=== PATIENT | female | born 1960 | race Caucasian/White ===

== ENCOUNTER 2019-08-05 00:19 | Day surgery (SDC) | payer BC, SELFPAY ==
[2019-07-29 12:25] VITALS: BMI 28.0
[2019-08-05] MEDS: LACTATED RINGERS 1,000 ML 150 ML IV CONT (06:54)
[2019-08-05 06:55] VITALS: BP 143/80; PULSE 87; RESP 18; TEMP 36.4; O2SAT 100; BMI 29.4
--- NOTE | 2019-08-05 07:17 | WPDANESEPPF ---
Anes - Initial Pre Proc Eval Procedure: Operation Date: 08/05/19 07:30 Proposed Procedures p Screening Colonoscopy - Rajiv Thakkar DO Date/Time: 08/05/19 07:17 Surgeon: Rajiv Thakkar DO Pre Op Diagnosis: Hx Colon Polyps/ Fam Hx Colon Ca Patient Data Age: 58 Gender: F Height: 5 ft Weight: 68.4 kg Last Vital Signs Temp 97.5 F L 08/05/19 06:55 Pulse 87 08/05/19 06:55 Resp 18 08/05/19 06:55 BP 143/80 H 08/05/19 06:55 Pulse Ox 100 08/05/19 06:55 Allergies Allergy/AdvReac Type Severity Reaction Status Date / Time pseudoephedrine AdvReac Unknown Tachycardia Verified 08/05/19 06:38 Home Medications Medication Instructions Recorded Confirmed Type ascorbic acid (vitamin C) [Vitamin 500 mg PO DAILY 07/29/19 07/29/19 History C] calcium carbonate 500 mg (1,250 1 tablet PO DAILY 07/29/19 07/29/19 History mg)-vitamin D3 125 unit tablet cholecalciferol (vitamin D3) 50 2,000 unit PO DAILY 07/29/19 07/29/19 History mcg (2,000 unit) capsule fexofenadine 180 mg tablet 180 mg PO DAILY 07/29/19 07/29/19 History hydrochlorothiazide 50 mg PO QAM 07/29/19 07/29/19 History multivitamin 1 tablet PO DAILY 07/29/19 07/29/19 History rosuvastatin 5 mg PO HS 07/29/19 07/29/19 History valacyclovir 500 mg PO DAILY PRN 07/29/19 07/29/19 History penciclovir 1 % topical cream 1 applic TOPICAL Q2H PRN #5 gm 07/30/19 08/05/19 Rx Patient hx anesthesia problems: none Family hx anesthesia problems: none PMFSH Past Medical History Medical History (Updated 08/05/19 @ 07:17 by Feng Lugo MD) Essential (primary) hypertension Mixed hyperlipidemia Family History Family History (Updated 07/30/19 @ 08:39 by Rafael Timmons MD) Mother Multiple myeloma Father Carcinoma of colon Social History Social History Smoking status: Never smoker Second hand tobacco smoke exposure: No Alcohol intake: never Substance use: never Substance use type: does not use Gender identity (if verbalized by the patient): Female Anes - Eval Final PreProcedure Day of Procedure 08/05/19 07:17 Patient weight: normal Heart: regular rate and rhythm Lungs: clear to auscultation Airway: Mallampati scale class II Neurological: alert and oriented Last oral intake: >/= 8 hours ASA classification: II Emergent: no Anesthetic plan: proceed Anesthesia type and monitoring: general GIVS and standard monitoring Informed Consent: The patient's anesthetic plan and its attendant risks and benefits were discussed with the patient/family/POA. Questions were solicited and answers provided to the satisfaction of the patient/family/POA.
--- NOTE | 2019-08-05 07:25 | PM.IMHP ---
H&P: HPI History of Present Illness Chief complaint: Hx Colon Polyps/ Fam Hx Colon Ca Narrative: Thi Chambers is a 58 year old female [facility]. She reports last colonoscopy was in 2011 and does report hx of polyps. She also has hx of colon cancer in her father diagnosed in his late 30s.She denies any acute bowel habit changes, diarrhea, constipation, melena, hematochezia, abdominal pains or rectal pains. Denies upper GI symptoms. Denies abnormal weight loss, fever or chills. Review of Systems Review of Systems: All systems reviewed & are unremarkable except as noted in HPI and below PMFSH Past Medical History Medical History (Updated 08/05/19 @ 07:26 by Marlee Holloway, [employer]) Essential (primary) hypertension Mixed hyperlipidemia Family History Family History (Updated 07/30/19 @ 08:39 by Rafael Timmons MD) Mother Multiple myeloma Father Carcinoma of colon Social History Social History Smoking status: Never smoker Second hand tobacco smoke exposure: No Alcohol intake: never Substance use: never Substance use type: does not use Gender identity (if verbalized by the patient): Female Meds Home Medications and Allergies Home Medications Medication Instructions Recorded Confirmed Type ascorbic acid (vitamin C) [Vitamin 500 mg PO DAILY 07/29/19 07/29/19 History C] calcium carbonate 500 mg (1,250 1 tablet PO DAILY 07/29/19 07/29/19 History mg)-vitamin D3 125 unit tablet cholecalciferol (vitamin D3) 50 2,000 unit PO DAILY 07/29/19 07/29/19 History mcg (2,000 unit) capsule fexofenadine 180 mg tablet 180 mg PO DAILY 07/29/19 07/29/19 History hydrochlorothiazide 50 mg PO QAM 07/29/19 07/29/19 History multivitamin 1 tablet PO DAILY 07/29/19 07/29/19 History rosuvastatin 5 mg PO HS 07/29/19 07/29/19 History valacyclovir 500 mg PO DAILY PRN 07/29/19 07/29/19 History penciclovir 1 % topical cream 1 applic TOPICAL Q2H PRN #5 gm 07/30/19 08/05/19 Rx Allergies Allergy/AdvReac Type Severity Reaction Status Date / Time pseudoephedrine AdvReac Unknown Tachycardia Verified 08/05/19 06:38 Vital Signs Vital Signs - 24 hr 08/05/19 06:55 Temperature 36.4 C L Pulse Rate 87 Respiratory Rate 18 Blood Pressure 143/80 H Pulse Oximetry 100 Exam Const: General: cooperative, healthy appearing, comfortable, alert and awake Nutritional Appearance: average body habitus Orientation/consciousness: oriented to person, oriented to place, oriented to time and patient oriented x3 Limitations: no limitations HENMT: Head: normal to inspection and normocephalic Mouth: Yes Normal oral and palatal mucosa present and Yes moist mucous membranes Neck: Neck: normal visual inspection, supple and no JVD Carotids: no bruits Resp: Effort & Inspection: normal respiratory effort and no respiratory distress Auscultation: clear to auscultation bilaterally Cardio: Rate: regular rate Rhythm: regular rhythm Heart sounds: S1 normal heart sound present, S2 normal heart sound present, no gallops, no murmurs and no rubs GI: Inspection: normal to inspection GI Palp: No abdominal tenderness and No No hepatosplenomegaly present Percussion: Yes normal to percussion Auscultation: normal bowel sounds Rectal Exam: deferred Skin: General skin exam: normal color Lesions: no lesions Rashes: no rashes Neuro: General: oriented to person, oriented to place, oriented to time, patient oriented x3 and moves all extremities Cognition (Neuro): normal cognition Speech: normal speech Gait exam (Neuro): Normal gait present Extrem: General: normal to inspection Psych: Appearance: grossly normal Mental Status: mental status grossly normal Speech and movement: Normal speech and movement present Affect: normal affect Attitude: cooperative Thought process: Normal thought process present Assessment and Plan Assessment and plan (1) Hx of adenomatous c
[2019-08-05 07:47] VITALS: BP 82/51; PULSE 68; RESP 15; O2SAT 95
[2019-08-05 07:57] VITALS: BP 87/53; PULSE 66; RESP 16; O2SAT 96
[2019-08-05 08:07] VITALS: BP 95/62; PULSE 67; RESP 18; O2SAT 100
== END 2019-08-05 08:23 | disposition home or self-care (01) ==
PROVIDERS: PCP Family Medicine; Visit Provider Internal Medicine Gastroenterology
PROC: 0DJD8ZZ Inspection of Lower Intestinal Tract, Via Natural or Artificial Opening Endoscopic (ICD-10-PCS; CPT 45378; principal; 2019-08-05 07:30)
DX: Z12.11 Encounter for screening for malignant neoplasm of colon (principal); K62.1 Rectal polyp; K64.8 Other hemorrhoids; Z80.0 Family history of malignant neoplasm of digestive organs; I10 Essential (primary) hypertension; E78.2 Mixed hyperlipidemia
CPT/HCPCS: 45380; 88305; J2704; J7120

== ENCOUNTER 2019-12-30 09:43 | Outpatient (CLI) | payer BC, SELFPAY ==
--- NOTE | ~2019-12-30 | MM_ITS ---
EXAMINATION: MM screening chaim BI w abhilash HISTORY: Screening mammogram TECHNIQUE: Craniocaudal and mediolateral oblique 3-D tomosynthesis images were obtained and synthetic 2-D images were generated. CAD analysis was submitted and interpreted. COMPARISON: 11/13/2018, 11/07/2017, 09/20/2016 bilateral digital screening mammogram examinations BREAST PARENCHYMAL COMPOSITION: There are scattered areas of fibroglandular density. FINDINGS: Stable occasional benign appearing calcifications. There is no evidence of suspicious mass, calcification, or architectural distortion to suggest malignancy in either breast. There has been no suspicious interval change. IMPRESSION: 1. No mammographic evidence of malignancy. 2. Recommend routine screening mammography in one year. BI-RADS Category 2: Benign finding(s). Reviewed, dictated and finalized at location A.
== END 2019-12-30 09:44 | disposition home or self-care (01) ==
PROVIDERS: PCP Family Medicine; Visit Provider Obstetrics & Gynecology
DX: Z12.31 Encounter for screening mammogram for malignant neoplasm of breast (principal)
CPT/HCPCS: 77063; 77067

== ENCOUNTER 2022-06-15 10:34 | Outpatient (CLI) | payer OTHER, SELFPAY ==
--- NOTE | ~2022-06-15 | MM_ITS ---
EXAMINATION: MM screening chaim BI w abhilash HISTORY: Screening TECHNIQUE: Craniocaudal and mediolateral oblique 3-D tomosynthesis images were obtained and synthetic 2-D images were generated. CAD analysis was submitted and interpreted. COMPARISON: Comparison to multiple prior studies sequentially, with oldest reviewed study dated 08/16. BREAST PARENCHYMAL COMPOSITION: There are scattered areas of fibroglandular density. FINDINGS: There is no evidence of suspicious mass, calcification, or architectural distortion to sugg est malignancy in either breast. There has been no suspicious interval change. IMPRESSION: 1. No mammographic evidence of malignancy. 2. Recommend routine screening mammography in one year. BI-RADS Category 1: Negative Reviewed, dictated and finalized at location B. [employer]
== END 2022-06-15 10:35 | disposition home or self-care (01) ==
LOC: ANHIMG 10:36
PROVIDERS: PCP Family Medicine; Visit Provider Obstetrics & Gynecology
DX: Z12.31 Encounter for screening mammogram for malignant neoplasm of breast (principal)
CPT/HCPCS: 77063; 77067

== ENCOUNTER 2022-08-25 16:59 | Emergency (ER) | payer OTHER, SELFPAY ==
--- NOTE | 2022-08-25 17:05 | ED.URI ---
HPI - URI/Sore Throat General Chief Complaint: Upper Respiratory Infection Stated Complaint: Sore Throat Time Seen by Provider: 08/25/22 17:05 Source: patient, RN notes reviewed and old records reviewed Mode of arrival: ambulatory Limitations: no limitations History of Present Illness HPI Narrative: 61-year-old female presents to the [facility] with complaints of a sore throat since this morning. Has taken ibuprofen and Tylenol. Last dose of Tylenol was about 2 hours prior to arrival Related Data Home Medications Medication Instructions Recorded Confirmed ascorbic acid (vitamin C) 500 mg 500 mg PO DAILY 07/29/19 08/25/22 tablet (Vitamin C) calcium carbonate 500 mg-vitamin 1 tablet PO DAILY 07/29/19 08/25/22 D3 3.125 mcg (125 unit) tablet cholecalciferol (vitamin D3) 50 2,000 unit PO DAILY 07/29/19 08/25/22 mcg (2,000 unit) capsule fexofenadine 180 mg tablet 180 mg PO DAILY 07/29/19 08/25/22 (Yanelis Allergy) multivitamin 1 tablet PO DAILY 07/29/19 08/25/22 valacyclovir 500 mg tablet 500 mg PO DAILY PRN Outbreak 07/29/19 08/25/22 Allergies Allergy/AdvReac Type Severity Reaction Status Date / Time pseudoephedrine AdvReac Unknown Tachycardia Verified 08/25/22 17:02 Review of Systems Review of Systems: All systems reviewed & are unremarkable except as noted in HPI and below Constitutional: Constitutional: Reports no additional constitutional complaints Eyes: Eyes: Reports no additional eye complaints ENT: Reports as per HPI and Reports sore throat Cardiovascular: Cardiovascular: Reports no additional cardiovascular complaints, Denies chest pain and Denies dyspnea Respiratory: Respiratory: Reports no additional respiratory complaints, Denies chest congestion, Denies cough and Denies dyspnea Gastrointestinal: Gastrointestinal: Reports no additional gastrointestinal complaints, Denies abdominal pain, Denies nausea and Denies vomiting Musculoskeletal: Musculoskeletal: Reports no additional musculoskeletal complaints Integumentary/Breasts: Skin/Breast: Reports system reviewed and no additional complaints, except as docu Neurologic: Reports system reviewed and no additional complaints, except as documented Psychiatric: Psychiatric: Reports no additional psychiatric complaints Allergic/Immunologic: Allergic/Immunologic: Reports no additional allergic/immunologic complaints PMFSH Past Medical History Medical History Essential (primary) hypertension Mixed hyperlipidemia Family History Family History Mother Multiple myeloma Father Carcinoma of colon Social History Social History Smoking status: Never smoker Second hand tobacco smoke exposure: No Alcohol intake: never Substance use: never Substance use type: does not use Living arrangements: with family Occupation/Education: occupation Gender identity (if verbalized by the patient): Female Sexual Orientation (if Verbalized by the Patient): Straight or Heterosexual Comments At the time of my signature, I reviewed and agree with the nursing past medical, surgical, social, and family history. There is no relevant family history pertinent to the patient complaint. Exam Const: General: cooperative, healthy appearing, comfortable, no acute distress, well developed, alert and well nourished Nutritional Appearance: well nourished Orientation/consciousness: patient oriented x3 Limitations: no limitations HENMT: Head: normal to inspection Ears: hearing grossly normal bilaterally and external ears normal Face/Nose/Sinus: Normal external nose present, Normal nares present, Normal nasal mucous membranes and turbinates present and normal facial exam Face and sinus: normal facial exam Mouth: Yes Normal oral and palatal mucosa present, Yes lip normal and Yes moist mucous membran
[2022-08-25 17:08] VITALS: BP 142/63; PULSE 120; RESP 14; TEMP 38; O2SAT 98
== END 2022-08-25 17:45 | disposition home or self-care (01) ==
PROVIDERS: Emergency Provider Nurse Practitioner; PCP Family Medicine
DX: J02.0 Streptococcal pharyngitis (principal); I10 Essential (primary) hypertension; E78.2 Mixed hyperlipidemia
CPT/HCPCS: 87880; 99213; G0463

== ENCOUNTER 2022-09-07 11:40 | Emergency (ER) | payer OTHER, SELFPAY ==
[2022-09-07 11:49] VITALS: BP 151/80; PULSE 89; RESP 16; TEMP 36.8; O2SAT 100
--- NOTE | 2022-09-07 12:25 | ED.URI ---
HPI - URI/Sore Throat General Chief Complaint: Upper Respiratory Infection Stated Complaint: Sore Throat Time Seen by Provider: 09/07/22 12:00 Source: patient Mode of arrival: ambulatory Limitations: no limitations History of Present Illness HPI Narrative: Thi is a 61-year-old female patient presenting to the clinic today with complaints of a sore throat. She reports she just finished amoxicillin up just a few days ago for strep throat. States that she has began having sore throat, body aches, and chills again MD elicited complaint: sore throat Related Data Home Medications Medication Instructions Recorded Confirmed ascorbic acid (vitamin C) 500 mg 500 mg PO DAILY 07/29/19 08/25/22 tablet (Vitamin C) calcium carbonate 500 mg-vitamin 1 tablet PO DAILY 07/29/19 08/25/22 D3 3.125 mcg (125 unit) tablet cholecalciferol (vitamin D3) 50 2,000 unit PO DAILY 07/29/19 08/25/22 mcg (2,000 unit) capsule fexofenadine 180 mg tablet 180 mg PO DAILY 07/29/19 08/25/22 (Yanelis Allergy) multivitamin 1 tablet PO DAILY 07/29/19 08/25/22 valacyclovir 500 mg tablet 500 mg PO DAILY PRN Outbreak 07/29/19 08/25/22 Allergies Allergy/AdvReac Type Severity Reaction Status Date / Time pseudoephedrine AdvReac Unknown Tachycardia Verified 08/25/22 17:02 Review of Systems Review of Systems: Pertinent positives per HPI. Patient denies any fever, chills, rash, headache, visual changes, dizziness, cough, shortness of breath, chest pain, palpitations, nausea, vomiting, diarrhea, constipation, abdominal pain, or any urinary issues. [facility] Past Medical History Medical History Essential (primary) hypertension Mixed hyperlipidemia Family History Family History Mother Multiple myeloma Father Carcinoma of colon Social History Social History Smoking status: Never smoker Second hand tobacco smoke exposure: No Alcohol intake: never Substance use: never Substance use type: does not use Living arrangements: with family Occupation/Education: occupation Gender identity (if verbalized by the patient): Female Sexual Orientation (if Verbalized by the Patient): Straight or Heterosexual Comments At the time of my signature, I reviewed and agree with the nursing past medical, surgical, social, and family history. There is no relevant family history pertinent to the patient complaint. Exam Narrative: General: Well-developed, well nourished, in no apparent distress Head: Normocephalic, atraumatic Eyes: Pupils equally round and reactive to light bilaterally, EOM intact, sclera and conjunctive clear, no discharge, lids normal Ears: TMs intact and clear, ear canals clear, no drainage, grossly hearing normal. Nose: Nares patent, no discharge, no inflammation, no sinus tenderness. Mouth: Oral pharynx without lesions or masses, good dentition, MMM. Oropharynx red with bilateral tonsil enlargement and exudate to the right tonsil Neck: Supple, trachea midline, enlargement of anterior cervical nodes, no thyroid masses or goiter palpable. Cardio: Regular rate and rhythm, s1 and s2 normal, no murmur appreciated. Resp: Clear to auscultation bilaterally, no rhonchi, rales, wheezing or rubs Course Course Emergency Course: Portions of this record may have been created with voice recognition software. Level of Care: Express Care Visit Vital Signs Vital signs: Vital Signs Temperature 36.8 C 09/07/22 11:49 Pulse Rate 89 09/07/22 11:49 Respiratory Rate 16 09/07/22 11:49 Blood Pressure 151/80 H 09/07/22 11:49 Pulse Oximetry 100 09/07/22 11:49 Oxygen Delivery Room Air 09/07/22 11:49 Temperature 36.8 C 09/07/22 11:49 Pulse Rate 89 09/07/22 11:49 Respiratory Rate 16 09/07/22 11:49 Blood Pressure 151/80 H 09/07/22
== END 2022-09-07 12:35 | disposition home or self-care (01) ==
PROVIDERS: Emergency Provider Nurse Practitioner Family; PCP Family Medicine
DX: J02.0 Streptococcal pharyngitis (principal); I10 Essential (primary) hypertension; E78.2 Mixed hyperlipidemia
CPT/HCPCS: 87880; 99213; G0463

== ENCOUNTER 2023-04-13 10:00 | Emergency (ER) | payer OTHER, SELFPAY ==
--- NOTE | 2023-04-13 10:04 | ED.URI ---
HPI - URI/Sore Throat General Chief Complaint: Upper Respiratory Infection Stated Complaint: sore throat Time Seen by Provider: 04/13/23 10:04 Source: patient Mode of arrival: ambulatory Limitations: no limitations History of Present Illness HPI Narrative: Whitney is a 8-year-old female patient presenting to the clinic today with complaints of a sore throat times 2-3 days. She reports she had fever as high as 100.8? F. No cough or runny nose. 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 MD elicited complaint: fever and sore throat Related Data Home Medications Medication Instructions Recorded Confirmed ascorbic acid (vitamin C) 500 mg 500 mg PO DAILY 07/29/19 04/08/23 tablet (Vitamin C) calcium carbonate 500 mg-vitamin 1 tablet PO DAILY 07/29/19 04/08/23 D3 3.125 mcg (125 unit) tablet cholecalciferol (vitamin D3) 50 2,000 unit PO DAILY 07/29/19 04/08/23 mcg (2,000 unit) capsule fexofenadine 180 mg tablet 180 mg PO DAILY 07/29/19 04/08/23 (Yanelis Allergy) multivitamin 1 tablet PO DAILY 07/29/19 04/08/23 valacyclovir 500 mg tablet 500 mg PO DAILY PRN Outbreak 07/29/19 04/08/23 Allergies Allergy/AdvReac Type Severity Reaction Status Date / Time pseudoephedrine AdvReac Unknown Tachycardia Verified 04/13/23 10:19 Review of Systems Review of Systems: Pertinent positives per HPI. Patient denies any rash, headache, visual changes, dizziness, cough, runny nose, shortness of breath, chest pain, palpitations, nausea, vomiting, diarrhea, constipation, abdominal pain, or any urinary issues. [facility] Past Medical History Medical History Essential (primary) hypertension Mixed hyperlipidemia Family History Family History Mother Multiple myeloma Father Carcinoma of colon Social History Social History Smoking status: Never smoker Second hand tobacco smoke exposure: No Alcohol intake: never Substance use: never Substance use type: does not use Living arrangements: with family Occupation/Education: occupation Gender identity (if verbalized by the patient): Female Sexual Orientation (if Verbalized by the Patient): Straight or Heterosexual Comments At the time of my signature, I reviewed and agree with the nursing past medical, surgical, social, and family history. There is no relevant family history pertinent to the patient complaint. Exam Narrative: General: Well-developed, well nourished, in no apparent distress Head: Normocephalic, atraumatic Eyes: Pupils equally round and reactive to light bilaterally, EOM intact, sclera and conjunctive clear, no discharge, lids normal Ears: TMs intact and clear, ear canals clear, no drainage, grossly hearing normal. Nose: Nares patent, no discharge, no inflammation, no sinus tenderness. Mouth: Oral pharynx red with bilateral tonsillar enlargement and exudate to bilateral tonsils without lesions or masses, good dentition, MMM. Neck: Supple, trachea midline, enlargement of anterior cervical nodes, no thyroid masses or goiter palpable. Cardio: Regular rate and rhythm, s1 and s2 normal, no murmur appreciated. Resp: Clear to auscultation bilaterally, no rhonchi, rales, wheezing or rubs Course Course Emergency Course: Portions of this record may have been created with voice recognition software. Level of Care: Express Care Visit Vital Signs Vital signs: Vital signs reviewed MDM - URI/Sore Throat MDM Narrative Medical decision making narrative: At the time of visit patient is resting comfortably on exam table. I suspect patient has exudate of pharyngitis. Centor criteria is 4 4. Strep test was negative. Will go ahead and empirically treat for strep pharyngitis as the Centor criteria is 4-4 and she has positive exposure. Will give patient amoxicillin. S
[2023-04-13 10:16] VITALS: BP 127/76; PULSE 85; RESP 18; TEMP 37.1; O2SAT 100
== END 2023-04-13 10:35 | disposition home or self-care (01) ==
PROVIDERS: Emergency Provider Nurse Practitioner Family; PCP Family Medicine
DX: J02.9 Acute pharyngitis, unspecified (principal); I10 Essential (primary) hypertension; E78.2 Mixed hyperlipidemia
CPT/HCPCS: 87081; 87880; 99213; G0463

== ENCOUNTER 2023-05-26 08:16 | Emergency (ER) | payer OTHER, SELFPAY ==
[2023-05-26 08:28] VITALS: BP 142/75; PULSE 81; RESP 16; TEMP 36.4; O2SAT 100
--- NOTE | 2023-05-26 08:46 | ED.FEMALEGU ---
HPI - Female Genitourinary General Chief complaint: Urogenital-Female Stated complaint: UTI Time Seen by Provider: 05/26/23 08:46 Source: patient and RN notes reviewed Mode of arrival: ambulatory Limitations: no limitations History of Present Illness HPI Narrative: 62-year-old female presents with concern for urinary tract infection. She reports her symptoms started the day before yesterday with low back pain. Last night she began having urine urgency. She reports frequency overnight. She denies fever, chills, abdominal pain, nausea. She denies taking any medications for her symptoms MD elicited complaint: UTI Related Data Home Medications Medication Instructions Recorded Confirmed ascorbic acid (vitamin C) 500 mg 500 mg PO DAILY 07/29/19 05/26/23 tablet (Vitamin C) calcium carbonate 500 mg-vitamin 1 tablet PO DAILY 07/29/19 05/26/23 D3 3.125 mcg (125 unit) tablet cholecalciferol (vitamin D3) 50 2,000 unit PO DAILY 07/29/19 05/26/23 mcg (2,000 unit) capsule fexofenadine 180 mg tablet 180 mg PO DAILY 07/29/19 05/26/23 (Yanelis Allergy) multivitamin 1 tablet PO DAILY 07/29/19 05/26/23 valacyclovir 500 mg tablet 500 mg PO DAILY PRN Outbreak 07/29/19 05/26/23 Allergies Allergy/AdvReac Type Severity Reaction Status Date / Time pseudoephedrine AdvReac Unknown Tachycardia Verified 05/26/23 08:25 Review of Systems Review of Systems: CONSTITUTIONAL: Denies malaise, chills, sweats, or fever. CARDIOVASCULAR: Denies chest pain, palpitations, or edema. RESPIRATORY: Denies cough or dyspnea. GASTROINTESTINAL: Denies abdominal pain, nausea, vomiting, diarrhea GENITOURINARY: Reports frequency, urgency, low back pain. Denies flank pain, dysuria, or hematuria. SKIN: Denies rash or itching. MUSCULOSKELETAL: Denies myalgia. All systems reviewed & are unremarkable except as noted in HPI and below PMFSH Past Medical History Medical History Essential (primary) hypertension Mixed hyperlipidemia Family History Family History Mother Multiple myeloma Father Carcinoma of colon Social History Social History Smoking status: Never smoker Second hand tobacco smoke exposure: No Alcohol intake: never Substance use: never Substance use type: does not use Living arrangements: with family Occupation/Education: occupation Gender identity (if verbalized by the patient): Female Sexual Orientation (if Verbalized by the Patient): Straight or Heterosexual Comments At time of signature, agree with nursing past medical, surgical, social and family history. There is no relevant family history pertinent to the presenting complaint Exam Narrative: GENERAL: Well-appearing, well-nourished, and in no acute distress. HEAD: Normocephalic. EYES: PERRLA, conjunctivae clear. NECK: Supple. No lymphadenopathy CHEST: Clear to auscultation. No respiratory distress. HEART: Regular rate and rhythm. ABDOMEN: Soft, nontender upon palpation, nondistended, normal active bowel sounds, no palpable or pulsatile masses, no guarding. No CVA tenderness SKIN: Warm, dry, no rash. NEURO: Alert and oriented x3. PSYCH: Normal mood and affect Course Course Emergency Course: Patient is aware of diagnosis, understands and agrees to treatment plan. Anticipatory guidance given. Patient agrees to follow-up as directed and is aware of reasons to seek care at the emergency department. Portions of this record may have been created with voice recognition software Level of Care: Express Care Visit Vital Signs Vital signs: Vital Signs Temperature 97.5 F L 05/26/23 08:28 Pulse Rate 81 05/26/23 08:28 Respiratory Rate 16 05/26/23 08:28 Blood Pressure 142/75 H 05/26/23 08:28 Pulse Oximetry 100 05/26/23 08:28 Oxygen Delivery Room Air 05/26/23
== END 2023-05-26 08:59 | disposition home or self-care (01) ==
PROVIDERS: Emergency Provider Nurse Practitioner; PCP Family Medicine
DX: N39.0 Urinary tract infection, site not specified (principal); I10 Essential (primary) hypertension; E78.2 Mixed hyperlipidemia; Z79.899 Other long term (current) drug therapy
CPT/HCPCS: 81003; 87077; 87086; 87186; 99213; G0463

== ENCOUNTER 2023-09-21 17:34 | Emergency (ER) | payer OTHER, SELFPAY ==
[2023-09-21 17:46] VITALS: BP 152/76; PULSE 90; RESP 14; TEMP 36.7; O2SAT 100
--- NOTE | 2023-09-21 18:14 | ED.URI ---
HPI - URI/Sore Throat General Chief Complaint: Upper Respiratory Infection Stated Complaint: Sore Throat Time Seen by Provider: 09/21/23 18:09 Source: patient and RN notes reviewed Mode of arrival: ambulatory Limitations: no limitations History of Present Illness HPI Narrative: Patient presents today complaining of fever up to 101, neck soreness, right ear pressure, fatigue body aches. Symptoms began approximately 4 hours ago. She has been taking Advil and Tylenol with some relief. She had exposure by her grandchildren and son this weekend. Related Data Home Medications Medication Instructions Recorded Confirmed ascorbic acid (vitamin C) 500 mg 500 mg PO DAILY 07/29/19 05/26/23 tablet (Vitamin C) calcium carbonate 500 mg-vitamin 1 tablet PO DAILY 07/29/19 05/26/23 D3 3.125 mcg (125 unit) tablet cholecalciferol (vitamin D3) 50 2,000 unit PO DAILY 07/29/19 05/26/23 mcg (2,000 unit) capsule fexofenadine 180 mg tablet 180 mg PO DAILY 07/29/19 05/26/23 (Yanelis Allergy) multivitamin 1 tablet PO DAILY 07/29/19 05/26/23 valacyclovir 500 mg tablet 500 mg PO DAILY PRN Outbreak 07/29/19 05/26/23 Allergies Allergy/AdvReac Type Severity Reaction Status Date / Time pseudoephedrine AdvReac Unknown Tachycardia Verified 09/21/23 17:41 Review of Systems Review of Systems: CONSTITUTIONAL: Denies chills, or sweats.+ fever, body aches, fatigue EYES: Denies visual changes, redness, or discharge. ENT: Denies rhinorrhea, congestion, sore throat. + right ear pressure, neck soreness CARDIOVASCULAR: Denies chest pain, palpitations, or edema. RESPIRATORY: Denies cough or dyspnea. GASTROINTESTINAL: Denies abdominal pain, nausea, vomiting, or diarrhea. GENITOURINARY: Denies dysuria or hematuria. SKIN: Denies rash, itching, or wounds. MUSCULOSKELETAL: Denies back pain, joint pain, or myalgia. NEUROLOGIC: Denies headache, numbness, tingling, or weakness. PSYCH: Denies depression or anxiety. [facility] Past Medical History Medical History Essential (primary) hypertension Mixed hyperlipidemia Family History Family History Mother Multiple myeloma Father Carcinoma of colon Social History Social History Smoking status: Never smoker Second hand tobacco smoke exposure: No Alcohol intake: never Substance use: never Substance use type: does not use Living arrangements: with family Occupation/Education: occupation Gender identity (if verbalized by the patient): Female Sexual Orientation (if Verbalized by the Patient): Straight or Heterosexual Comments At time of signature, I have reviewed and agree with nursing past medical, surgical, social and family history unless otherwise noted. Please see nursing chart for further information. There is no relevant family history pertinent to the presenting complaint Exam Narrative: GENERAL: Well-appearing, well-nourished, and in no acute distress. HEAD: Normocephalic, atraumatic. EYES: EOMI. No redness or drainage. Conjunctivae normal. ENT: Mucous membranes pink and moist. Nares clear. No rhinorrhea. TMs normal bilaterally. Throat mildly erythematous without edema or exudate. Uvula midline. NECK: Normal AROM. Supple. No lymphadenopathy. CHEST: No respiratory distress. Clear to auscultation. HEART: Regular rate and rhythm. No murmur appreciated. EXTREMITIES: Normal range of motion. No edema. SKIN: Warm, dry, no rash. Capillary refill normal. Normal skin turgor. NEURO: No focal deficits. Alert and oriented x3. Gait steady. PSYCH: Normal affect. No signs of depression or anxiety. Course Course Level of Care: Express Care Visit Vital Signs Vital signs: Vital Signs Temperature 98.1 F 09/21/23 17:46 Pulse Rate 90 09/21/23 17:46 Respiratory Rate 14 09/21/23 17
== END 2023-09-21 18:26 | disposition home or self-care (01) ==
PROVIDERS: Emergency Provider Nurse Practitioner; PCP Family Medicine
DX: J02.0 Streptococcal pharyngitis (principal); I10 Essential (primary) hypertension; E78.2 Mixed hyperlipidemia
CPT/HCPCS: 87880; 99213; G0463

== ENCOUNTER 2023-11-06 09:37 | Outpatient (CLI) | payer OTHER, SELFPAY ==
--- NOTE | ~2023-11-06 | MM_ITS ---
EXAMINATION: MM screening chaim BI w abhilash HISTORY: Screening mammogram TECHNIQUE: Craniocaudal and mediolateral oblique 3-D tomosynthesis images were obtained and synthetic 2-D images were generated. CAD analysis was submitted and interpreted. COMPARISON: 06/15/2022, 12/30/2019 bilateral screening mammogram examinations BREAST PARENCHYMAL COMPOSITION: There are scattered areas of fibroglandular density. FINDINGS: There is no evidence of suspicious mass, calcification, or architectural distortion to sugg est malignancy in either breast. There has been no suspicious interval change. IMPRESSION: 1. No mammographic evidence of malignancy. 2. Recommend routine screening mammography in one year. BI-RADS Category 1: Negative Reviewed, dictated and finalized at location A.
== END 2023-11-06 09:38 | disposition home or self-care (01) ==
PROVIDERS: PCP Family Medicine; Visit Provider Obstetrics & Gynecology
DX: Z12.31 Encounter for screening mammogram for malignant neoplasm of breast (principal)
CPT/HCPCS: 77063; 77067

== ENCOUNTER 2024-05-06 10:00 | Emergency (ER) | payer OTHER, SELFPAY ==
--- NOTE | 2024-05-06 10:03 | ED_ITS ---
HPI - Female Genitourinary General Chief complaint: Urogenital-Female Stated complaint: UTI Time Seen by Provider: 05/06/24 10:22 Source: patient, RN notes reviewed and old records reviewed Mode of arrival: ambulatory Limitations: no limitations History of Present Illness HPI Narrative: 63-year-old female presents to the [facility] with concerns for a UTI Patient reports frequency, urgency and still feeling like her bladder is full after urination. Decreased urine output. Denies any nausea or vomiting. Denies CVA tenderness, has some cramping suprapubic Onset (ago): day(s) (1) Related Data Home Medications Medication Instructions Recorded Confirmed ascorbic acid (vitamin C) 500 mg 500 mg PO DAILY 07/29/19 04/13/24 tablet (Vitamin C) calcium 500 mg (as 1 tablet PO DAILY 07/29/19 04/13/24 carbonate)-vitamin D3 3.125 mcg (125 unit) tablet cholecalciferol (vitamin D3) 50 2,000 unit PO DAILY 07/29/19 04/13/24 mcg (2,000 unit) capsule multivitamin 1 tablet PO DAILY 07/29/19 04/13/24 Allergies Allergy/AdvReac Type Severity Reaction Status Date / Time pseudoephedrine AdvReac Unknown Tachycardia Verified 05/06/24 10:03 Review of Systems Review of Systems: All systems reviewed & are unremarkable except as noted in HPI and below Constitutional: Constitutional: Reports no additional constitutional complaints ENT: Reports system reviewed and no additional complaints, except as documented Cardiovascular: Cardiovascular: Reports no additional cardiovascular complaints, Denies chest pain and Denies dyspnea Respiratory: Respiratory: Reports no additional respiratory complaints, Denies chest congestion, Denies cough and Denies dyspnea Gastrointestinal: Gastrointestinal: Reports no additional gastrointestinal complaints, Denies abdominal pain, Denies nausea and Denies vomiting Genitourinary: Genitourinary: Reports as per HPI Musculoskeletal: Musculoskeletal: Reports no additional musculoskeletal complaints Integumentary/Breasts: Skin/Breast: Reports system reviewed and no additional complaints, except as docu PMFSH Past Medical History Medical History Essential (primary) hypertension Mixed hyperlipidemia Family History Family History Mother Multiple myeloma Father Carcinoma of colon Social History Social History Smoking status: Never smoker Second hand tobacco smoke exposure: No Alcohol intake: never Substance use: never Substance use type: does not use Living arrangements: with family Occupation/Education: occupation Gender identity (if verbalized by the patient): Female Sexual Orientation (if Verbalized by the Patient): Straight or Heterosexual Comments At the time of my signature, I reviewed and agree with the nursing past medical, surgical, social, and family history. There is no relevant family history pertinent to the patient complaint. Exam Const: General: cooperative, healthy appearing, comfortable, no acute distress, well developed, alert and well nourished Nutritional Appearance: well nourished Orientation/consciousness: patient oriented x3 Limitations: no limitations HENMT: Head: normal to inspection Ears: hearing grossly normal bilaterally and external ears normal Face/Nose/Sinus: Normal external nose present, normal facial exam and face symmetric Face and sinus: normal facial exam and face symmetric Eyes: General: appearance normal, both eyes and all related structures Alignment and Position: alignment normal Periorbital: periorbital findings normal Neck: Neck: normal visual inspection, full ROM, no lymphadenopathy and no meningeal signs Chest: Chest palpation & inspection: normal inspection of the chest Resp: Effort & Inspection: normal respiratory effort and able to speak in complete sentences Auscultation: clear to auscultation bilaterally, no crackles, no rales, no rhonchi and no wheezes Cardio: Rate: regular rate GI: GI Palp: No abdominal tenderness : General: Yes no CVA tenderness Skin: General skin exam: normal color and no rashes or lesions noted Lesions: no lesions Rashes: no rashes Wounds: no wounds Neuro: General: patient oriented x3, gait normal, tone normal, moves all extremities and no meningeal signs Cognition (Neuro): normal cognition Speech: normal speech Gait exam (Neuro): Normal gait present Extrem: General: normal to inspection, full ROM, capillary refill normal and normal gait Psych: Appearance: grossly normal and well kempt Mental Status: mental status grossly normal Speech and movement: Normal speech and movement present and Clear speech present Affect: normal affect Attitude: cooperative Course Course Level of Care: Express Care Visit Vital Signs Vital signs: Vital Signs Temperature 97.4 F L 05/06/24 10:09 Pulse Rate 79 05/06/24 10:09 Respiratory Rate 18 05/06/24 10:09 Blood Pressure 160/82 H 05/06/24 10:09 Pulse Oximetry 100 05/06/24 10:09 Oxygen Delivery Room Air 05/06/24 10:09 Temperature 97.4 F L 05/06/24 10:09 Pulse Rate 79 05/06/24 10:09 Respiratory Rate 18 05/06/24 10:09 Blood Pressure 160/82 H 05/06/24 10:09 Pulse Oximetry 100 05/06/24 10:09 Oxygen Delivery Room Air 05/06/24 10:09 Reviewed MDM - Female Genitourinary MDM Narrative Medical decision making narrative: Reviewed past microbiology. Had resistance to medication with poor coverage for Bactrim. Patient showed good coverage of 2nd 3rd generation cephalosporin Patient appropriate for outpatient treatment and follow-up Patient sitting comfortably in exam room. Nontoxic, vitals except for blood pressure are stable. Blood pressure mildly elevated, recommendation for follow- up. Discharge instructions reviewed with patient, as well as provided in writing per nursing staff. The instructions also include specific and strict return/GO TO THE ER as well as f/u information. All questions have been answered, and the patient deny any further questions with discharge and discharge plan. Some parts of this dictation were generated by voice recognition software and may contain typographical and/or grammatical inaccuracies. Differential Diagnosis Differential diagnosis: Likely urinary tract infection Lab Data Labs: Lab Results 05/06/24 Range/Units 10:13 POC Urine Color Yellow POC Urine Clarity Clear POC Urine pH 7.0 POC Ur Specif [place] 1.015 POC Urine Protein Negative (Negative) POC Ur Glucose (UA) Negative (Negative) POC Urine Ketones Negative (Negative) POC Urine Blood Negative (Negative) POC Urine Nitrite Negative (Negative) POC Urine Bilirubin Negative (Negative) POC Urine Urobilinogen 0.2 POC U Leukocyte Esteras 1+ (Negative) Reviewed Critical Care Time Critical Care Time Critical Care Time: No Discharge Plan Discharge Clinical Impression: Urinary tract infection Patient Disposition: Home, Self-Care Condition: Stable Instructions: Antibiotic Form, Urinary Tract Infection in Women (DC) Additional Instructions: Today blood pressure 160/82. It is recommended to follow-up with primary care provider to have this rechecked within 2 weeks. Increased water intake Take Tylenol as needed for pain Take antibiotic as prescribed Today your urine dip showed a probability of a UTI. You have been prescribed an antibiotic. Your urine will be sent to our lab for a culture. If at that time a bacteria grows that is not covered by the antibiotic prescribed you will be notified. Follow-up with primary care For new or worsening symptoms go directly to the emergency room Patient Language: Swazi Prescriptions: New cefpodoxime 100 mg tablet 100 mg PO BID Qty: 10 0RF Rx Instructions: must administer with a meal/food No Action metformin 500 mg tablet extended release 24 hr 500 mg PO DAILY Qty: 120 5RF Rx Instructions: 1 po qd x one wk, then 2 po qd x 1 wk, then 3 po qd x 1 wk, then 4 po qd hydrochlorothiazide 50 mg tablet 50 mg PO QAM Qty: 90 3RF rosuvastatin 5 mg tablet 5 mg PO HS Qty: 90 3RF cholecalciferol (vitamin D3) 50 mcg (2,000 unit) capsule 2,000 unit PO DAILY multivitamin Tablet 1 tablet PO DAILY calcium carbonate-vitamin D3 500 mg(1,250mg) -125 unit tablet 1 tablet PO DAILY ascorbic acid (vitamin C) [Vitamin C] 500 mg Tablet 500 mg PO DAILY Follow-up/Referrals: Rafael Timmons MD [Primary Care Provider] - 2 Weeks ([facility] follow-up, blood pressure check, 160/82) Stand Alone Forms: Work/School Release IP Time of Disposition: 10:40
[2024-05-06 10:09] VITALS: BP 160/82; PULSE 79; RESP 18; TEMP 36.3; O2SAT 100
[2024-05-06 10:35] LABS: EDUAAPPEAR Clear; EDUABILI Negative (Negative); EDUABLOOD Negative (Negative); EDUACOLOR1 Yellow; EDUAGLUCOSE Negative (Negative); EDUAKETONE Negative (Negative); EDUALEUKO 1+ (Negative); EDUANITRATE Negative (Negative); EDUAPROTEIN Negative (Negative); EDUASPGRAVITY 1.015; EDUAUROBILI 0.2
== END 2024-05-06 10:46 | disposition home or self-care (01) ==
PROVIDERS: Emergency Provider Nurse Practitioner; PCP Family Medicine
DX: N39.0 Urinary tract infection, site not specified (principal); I10 Essential (primary) hypertension; E78.2 Mixed hyperlipidemia
CPT/HCPCS: 81003; 87086; 99203; G0463

== ENCOUNTER 2024-05-16 13:12 | Emergency (ER) | payer OTHER, SELFPAY ==
--- NOTE | 2024-05-16 13:18 | ED_ITS ---
HPI - URI/Sore Throat General Chief Complaint: Upper Respiratory Infection Stated Complaint: Sinus/Ears Irritation Time Seen by Provider: 05/16/24 13:15 Source: patient Mode of arrival: ambulatory Limitations: no limitations History of Present Illness HPI Narrative: Patient is a 63-year-old female who presents with bilateral ear pain and sinus pressure since Friday. Patient was in [place] and noticed allergies were acting up. Patient has been taking allergy medicine. Patient flew home Friday and noticed ear pain and pressure started. Denies any fever, chills, nausea, vomiting, diarrhea. Related Data Home Medications Medication Instructions Recorded Confirmed ascorbic acid (vitamin C) 500 mg 500 mg PO DAILY 07/29/19 04/13/24 tablet (Vitamin C) calcium 500 mg (as 1 tablet PO DAILY 07/29/19 04/13/24 carbonate)-vitamin D3 3.125 mcg (125 unit) tablet cholecalciferol (vitamin D3) 50 2,000 unit PO DAILY 07/29/19 04/13/24 mcg (2,000 unit) capsule multivitamin 1 tablet PO DAILY 07/29/19 04/13/24 Allergies Allergy/AdvReac Type Severity Reaction Status Date / Time pseudoephedrine AdvReac Unknown Tachycardia Verified 05/06/24 10:03 Review of Systems Review of Systems: All systems reviewed & are unremarkable except as noted in HPI and below Constitutional: Constitutional: Denies body ache(s), Denies chills, Denies fatigue, Denies fever(s), Denies headache(s), Denies malaise and Denies weakness Eyes: Eyes: Denies blurry vision, Denies itchy eyes and Denies loss of vision ENT: Reports otalgia, Denies headache(s), Reports nasal congestion, Denies sinus pain and Denies sore throat Cardiovascular: Cardiovascular: Denies chest pain, Denies irregular heart rhythm and Denies dyspnea Respiratory: Respiratory: Denies cough and Denies dyspnea Gastrointestinal: Gastrointestinal: Denies abdominal pain, Denies diarrhea, Denies nausea and Denies vomiting Musculoskeletal: Musculoskeletal: Denies back pain, Denies myalgias and Denies arthralgias Integumentary/Breasts: Skin/Breast: Denies pruritus and Denies rash Neurologic: Denies headache(s), Denies loss of vision and Denies weakness Psychiatric: Psychiatric: Reports no additional psychiatric complaints Endocrine: Endocrine: Denies fatigue Allergic/Immunologic: Allergic/Immunologic: Denies itchy eyes PMFSH Past Medical History Medical History Essential (primary) hypertension Mixed hyperlipidemia Family History Family History Mother Multiple myeloma Father Carcinoma of colon Social History Social History Smoking status: Never smoker Second hand tobacco smoke exposure: No Alcohol intake: never Substance use: never Substance use type: does not use Living arrangements: with family Occupation/Education: occupation Gender identity (if verbalized by the patient): Female Sexual Orientation (if Verbalized by the Patient): Straight or Heterosexual Comments At time of signature, agree with nursing past medical, surgical, social and family history. There is no relevant family history pertinent to the presenting complaint. Exam Const: General: cooperative, healthy appearing, comfortable, no acute distress and well nourished Nutritional Appearance: well nourished Orientation/consciousness: patient oriented x3 Limitations: no limitations HENMT: Head: normal to inspection, normocephalic and atraumatic Ears: hearing grossly normal bilaterally, external ears normal, EAC's normal, no periauricular adenopathy and TM abnormal bulging on the right, wth effusion serous on the right and erythematous on the left Face/Nose/Sinus: Normal external nose present, Abnormal mucous membranes and turbinates present erythematous bilateral and diffuse, normal facial exam, sinuses nontender and face symmetric Face and sinus: normal facial exam, sinuses nontender and face symmetric Mouth: Yes Normal oral and palatal mucosa present, Yes lip normal, Yes tongue normal, Yes Normal salivary glands and ducts present, Yes oropharynx normal and Yes moist mucous membranes Teeth and gingiva: dentition normal Throat: posterior oropharynx normal, tonsils normal and uvula midline Eyes: General: appearance normal, both eyes and all related structures Alignment and Position: alignment normal and position normal Periorbital: periorbital findings normal Eyelids: eyelids normal Pupils: Equal, round and reactive pupils present Neck: Neck: normal visual inspection, full ROM, no lymphadenopathy and supple Chest: Chest palpation & inspection: normal inspection of the chest and normal palpation of entire chest wall Resp: Effort & Inspection: normal respiratory effort and able to speak in complete sentences Auscultation: clear to auscultation bilaterally, no crackles, no rales, no rhonchi and no wheezes Cardio: Rate: regular rate Rhythm: regular rhythm Heart sounds: S1 normal heart sound present and S2 normal heart sound present GI: Inspection: normal to inspection Skin: General skin exam: normal color and no rashes or lesions noted Neuro: General: patient oriented x3 and moves all extremities Cranial nerves: Yes Equal, round and reactive pupils present Speech: normal speech Gait exam (Neuro): Normal gait present Extrem: General: normal to inspection, full ROM and no edema Psych: Appearance: grossly normal and well kempt Mental Status: mental status grossly normal Speech and movement: Normal speech and movement present Affect: normal affect Attitude: cooperative Thought process: Normal thought process present Course Course Emergency Course: Patient is aware of diagnosis, understands and agrees to treatment plan. Anticipatory guidance given. Patient agrees to follow-up as directed and is aware of reasons to seek care at the emergency department. Portions of this record may have been created with voice recognition software Level of Care: Express Care Visit Vital Signs Vital signs: Reviewed MDM - URI/Sore Throat MDM Narrative Medical decision making narrative: Discharge instructions reviewed with patient, as well as provided in writing per nursing staff. The instructions also include specific and strict return/GO TO THE ER as well as f/u information. All questions have been answered, and the patient deny any further questions with discharge and discharge plan. Differential diagnosis considered: Paiz virus, strep pharyngitis, allergic rhinitis, upper respiratory tract infection, sinusitis, rhinosinusitis, nasopharyngitis. viral pharyngitis, otitis media, otitis externa, otitis effusion, foreign body, cerumen impaction, viral syndrome, and influenza.? Exam findings show no acute concerns or changes; patient is non-toxic appearing and is in no distress.? Patient is appropriate for outpatient treatment and follow- up.? Medical Records Attestation: I reviewed the patient's medical records. Lab Data Attestation: I reviewed the patient's lab results. Discharge Plan Discharge Clinical Impression: Otitis media Patient Disposition: Home, Self-Care Condition: Stable Instructions: Ear Infection (GEN) Additional Instructions: Take antibiotics as directed. Recommend antihistamine such as Benadryl at night time and Zyrtec or Yanelis during the day until symptoms improve Nasacort nasal spray, 1 spray in each nostril once daily until symptoms improve Also, recommend symptomatic treatment includes: rest, fluids, and increase humidity of the air at home. Recommend Acetaminophen as directed on the bottle to reduce fever, pain Please schedule a follow-up visit with your personal physician for further evaluation and treatment within 3-5days. If your symptoms persist, change or worsen significantly before you can contact your personal physician then please, without delay, go to the emergency department for further evaluation. Your blood pressure was elevated above 120/80 today at Urgent Care. This puts you above the threshold for follow up visit with a primary care provider. High blood pressure does not usually cause any symptoms, however it may lead to kidney failure, stroke, heart disease just to name a few if untreated . Many people are anxious when seeing a provider or nurse. As a result, you are not diagnosed with hypertension at this time unless your blood pressure is persistently high at two office visits at least one week apart. Some things that can help lower blood pressure are lifestyle modifications, such as light exercise, decreased salt in diet, and weight loss. It is important to follow up with a PCP about this within 1 week. Prescriptions: New amoxicillin 875 mg tablet 875 mg PO Q12H 7 Days Qty: 14 0RF No Action cefpodoxime 100 mg tablet 100 mg PO BID Qty: 10 0RF Rx Instructions: must administer with a meal/food metformin 500 mg tablet extended release 24 hr 500 mg PO DAILY Qty: 120 5RF Rx Instructions: 1 po qd x one wk, then 2 po qd x 1 wk, then 3 po qd x 1 wk, then 4 po qd hydrochlorothiazide 50 mg tablet 50 mg PO QAM Qty: 90 3RF rosuvastatin 5 mg tablet 5 mg PO HS Qty: 90 3RF cholecalciferol (vitamin D3) 50 mcg (2,000 unit) capsule 2,000 unit PO DAILY multivitamin Tablet 1 tablet PO DAILY calcium carbonate-vitamin D3 500 mg(1,250mg) -125 unit tablet 1 tablet PO DAILY ascorbic acid (vitamin C) [Vitamin C] 500 mg Tablet 500 mg PO DAILY Follow-up/Referrals: Rafael Timmons MD [Primary Care Provider] - 3 Days Time of Disposition: 13:34
[2024-05-16 13:20] VITALS: BP 146/78; PULSE 82; RESP 18; TEMP 36.7; O2SAT 98
== END 2024-05-16 13:40 | disposition home or self-care (01) ==
PROVIDERS: Emergency Provider Nurse Practitioner Family; PCP Family Medicine
DX: H66.93 Otitis media, unspecified, bilateral (principal); I10 Essential (primary) hypertension; E78.2 Mixed hyperlipidemia
CPT/HCPCS: 99213; G0463

== ENCOUNTER 2024-09-09 09:43 | Outpatient (CLI) | payer OTHER, SELFPAY ==
--- NOTE | ~2024-09-09 | XR_ITS ---
CHEST RADIOGRAPH, PA AND LATERAL CLINICAL HISTORY: R05.9 - Cough, unspecified . COMPARISON: None available TECHNIQUE: PA and lateral views of the chest. FINDINGS The cardiomediastinal silhouette is unremarkable. The lungs are clear. Visualized osseous structures and soft tissues are unremarkable. IMPRESSION: No focal infiltrate or effusion. Reviewed, dictated and finalized at location A. [employer]
== END 2024-09-09 09:44 | disposition home or self-care (01) ==
LOC: MICIMG 09:44
PROVIDERS: PCP Family Medicine; Visit Provider Physician Assistant Medical
DX: R53.83 Other fatigue (principal)
CPT/HCPCS: 71046

== ENCOUNTER 2024-11-26 08:37 | Outpatient (CLI) | payer OTHER, SELFPAY ==
--- NOTE | ~2024-11-26 | MM_ITS ---
EXAMINATION: MM screening chaim BI w abhilash HISTORY: Screening TECHNIQUE: Craniocaudal and mediolateral oblique 3-D tomosynthesis images were obtained and synthetic 2-D images were generated. CAD analysis was submitted and interpreted. COMPARISON: Comparison to multiple prior studies sequentially, with oldest reviewed study dated 09/20. BREAST PARENCHYMAL COMPOSITION: Dense: The breasts are heterogeneously dense, which may obscure small masses FINDINGS: There is no evidence of suspicious mass, calcification, or architectural distortion to sugg est malignancy in either breast. There has been no suspicious interval change. IMPRESSION: 1. No mammographic evidence of malignancy. 2. Recommend routine screening mammography in one year. BI-RADS Category 1: Negative Reviewed, dictated and finalized at location []
--- OUTSIDE RECORDS SUMMARY | 2024-11-26 08:42 | XMS_ITS | Clinical Summary ---
Author Organization [facility] Address [address], [address] [address] Phone Care Team Providers Care Supervisor Television Chassis Repair Name Role Phone Rafael Timmons MD Primary Care Provider Social History Tobacco Use Types Packs/Day Years Used Date Smoking Tobacco: Never Assessed Comments Unknown Sex and Gender Information Value Date Recorded Sex Assigned at Not on file Legal Sex Female 10:21 AM CDT Gender Identity Not on file Sexual Orientation Not on file Plan of Treatment Health Maintenance Due Date Last Done Comments Hepatitis C Virus (HCV) Screening 1960 TdaP Immunization 1960 Pap Smear 11/25/1983 Cervical Cancer Screening (CCS) 1992 HPV/Cotest 1992 Cologuard 2012 Immunochemical Fecal Occult Blood 2012 Mammogram 2012 Pneumococcal Immunization (5 0+ years) (1 of 1 - PCV) 2012 Zoster Immunization (1 of 2) 2012 Influenza Immunization (#1) 2024 SARS-COV-2 Immunization (1 - 2023- season) 2024 Colonoscopy 08/05/2024 08/05/2019 Colorectal Cancer Screening 08/05/2024 Respiratory Syncytial Virus (RSV) Immunization (Adult) (1 - 1-dose 75+ series) 2037 08/05/2019 Hepatitis B Immunization Aged Out No longer eligible based on patient's age to complete this topic Meningococcal Immunization (ACWY) Aged Out No longer eligible based on patient's age to complete this topic Pneumococcal Immunization Combined Aged Out No longer eligible based on patient's age to complete this topic Rotavirus Immunization Aged Out No lo nger eligible based on patient's age to complete this topic Procedures Procedure Name Priority Date/Time Associated Diagnosis Comments COLONOSCOPY Routine 08/05/2019 from Last 3 Months or Most Recently Relevant to Health Maintenance Results * COLONOSCOPY (08/05/2019) Rajiv Thakkar DO PROCEDURE/MINOR SURGICAL ORDERA BLES Final Result from Last 3 Months or Most Recently Relevant to Health Maintenance Insurance [facility] Care Teams Supervisor Television Chassis Repair Relationship Specialty Start Date End Date Rafael Timmons MD [address] [place] [address] PCP - General Family Medicine 08/11/19
--- OUTSIDE RECORDS SUMMARY | 2024-11-26 08:42 | XMS_ITS | Clinical Summary ---
Author Organization [facility] Address [address] [place] [address] Care Team Providers Care Operator Technician Name Role Phone Unavailable Primary Care Provider Unavailabl e Source Comments [facility],non-owned Affiliates and Associated Physician Practices is amultiple site organization consisting of ambulatory clinics and hospital sitesin [place], [place], [place] and [place]. This disclosure is being madepursuant to the Care Everywhere program and may not contain all information available regarding this patient. 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 Gender Identity Not on file Sexual Orientation Not on file Plan of Treatment Health Maintenance Due Date Last Done Comments COLOGUARD (AGES 45-75) - COL ON CA SCREENING 1962 COLON MONITORING 1962 COLONOSCOPY - COLON CA SCREENING 1962 CT COLONOGRAPHY - COLON CA SCREENING 1962 Colorectal Cancer Screening 1962 FIT - COLON CA SCREENING 1962 FLEX SIG - COLON CA SCREENING 1962 LIPID TESTING 1962 MAMMOGRAM 1962 HIV SCREENING 1977 HEPATITIS C SCREENING 11/19/1980 DTAP/TDAP/TD VACCINES (1 - Tdap) 1981 PNEUMOCOCCAL VACCINE 50+ (1 of 1 - PCV) 2012 ZOSTER VACCINE (1 of 2) 2012 COVID-19 VACCINE (1 - 2023-2 5 season) 2024 DEPRESSION SCREENING 07/07/2024 INFLUENZA VACCINE (Season Ended) 2025 Respiratory Syncytial Virus (RSV) Vaccine Pt: or over 60 yrs (1 - 1-dose 75+ series) 2037 HEPATITIS B VACCINE Aged Out No longe r eligible based on patient's age to complete this topic HIB VACCINE Aged Out No longer eligi ble based on patient's age to complete this topic HPV VACCINE Aged Out No longer eligi ble based on patient's age to complete this topic MENINGOCOCCAL (Group B) VACC INE SHARED DECISION-MAKING Aged Out No longer eligibl e based on patient's age to complete this topic MENINGOCOCCAL GROUPS A/C/Y/W VACCINE Aged Out No longer eligible b ased on patient's age to complete this topic
== END 2024-11-26 08:38 | disposition home or self-care (01) ==
LOC: ANHIMG 08:39
PROVIDERS: PCP Family Medicine; Visit Provider Obstetrics & Gynecology
DX: Z12.31 Encounter for screening mammogram for malignant neoplasm of breast (principal)
CPT/HCPCS: 77063; 77067

== ENCOUNTER 2025-02-24 10:05 | Emergency (ER) | payer OTHER, SELFPAY ==
[2025-02-24 10:16] VITALS: BP 142/80; PULSE 79; RESP 16; TEMP 36.2; O2SAT 100
[2025-02-24 10:28] LABS: EDSTREPNEGPOS1 Negative (Negative)
[2025-02-24 10:38] LABS: EDCOVIDSCREEN Negative (Negative)
[2025-02-24 10:38] LABS: EDINFLUASCREEN Negative (Negative); EDINFLUBSCREEN Negative (Negative)
--- NOTE | 2025-02-24 10:45 | ED.URI ---
HPI - URI/Sore Throat General Chief Complaint: Upper Respiratory Infection Stated Complaint: Sore Throat Time Seen by Provider: 02/24/25 10:35 Source: patient and RN notes reviewed Mode of arrival: ambulatory Limitations: no limitations History of Present Illness HPI Narrative: 64-year-old female presents Express Care complaining of upper respiratory symptoms since this morning. Patient reports sore throat, sinus pressure, ear pressure, body aches. Patient denies any cough, runny nose, chest pain, shortness of breath, nausea, vomiting, diarrhea, or other symptoms. Patient took Tylenol this morning help with the pain. Patient has a history of hypertension and diabetes. Related Data Home Medications ?Medication ?Instructions ?Recorded ?Confirmed ?Last Taken ?Type ascorbic acid (vitamin C) 500 mg 500 mg PO DAILY 07/29/19 12/14/24 Unknown History tablet (Vitamin C) calcium 500 mg (as 1 tablet PO DAILY 07/29/19 12/14/24 Unknown History carbonate)-vitamin D3 3.125 mcg (125 unit) tablet cholecalciferol (vitamin D3) 50 2,000 unit PO DAILY 07/29/19 12/14/24 Unknown History mcg (2,000 unit) capsule multivitamin 1 tablet PO DAILY 07/29/19 12/14/24 Unknown History Allergies Allergy/AdvReac Type Severity Reaction Status Date / Time azithromycin AdvReac Unknown Gastrointestinal Verified 02/24/25 10:07 Upset pseudoephedrine AdvReac Unknown Tachycardia Verified 02/24/25 10:07 Review of Systems Review of Systems: CONSTITUTIONAL: Denies fever, chills, or sweats. Positive for body aches. EYES: Denies visual changes, redness, or discharge. ENT: Positive for congestion, ear fullness, sore throat. Negative for rhinorrhea or otalgia. CARDIOVASCULAR: Denies chest pain, palpitations, or edema. RESPIRATORY: Positive for cough. Negative for dyspnea or wheezing. GASTROINTESTINAL: Denies abdominal pain, nausea, vomiting, or diarrhea. GENITOURINARY: Denies dysuria or hematuria. SKIN: Denies rash or itching. MUSCULOSKELETAL: Denies back pain, joint pain, or myalgia. NEUROLOGIC: Denies headache, numbness, or weakness. PSYCHIATRIC: Denies anxiety or depression. All other systems reviewed are negative, except as documented in HPI. [facility] Past Medical History Medical History Essential (primary) hypertension Mixed hyperlipidemia Family History Family History Mother Multiple myeloma Father Carcinoma of colon Social History Social History Smoking status: Never smoker Second hand tobacco smoke exposure: No Alcohol intake: never Substance use: never Substance use type: does not use Living arrangements: with family Occupation/Education: occupation Gender identity (if verbalized by the patient): Female Sexual Orientation (if Verbalized by the Patient): Straight or Heterosexual Comments At the time of my signature, I reviewed and agree with the nursing past medical, surgical, social, and family history. There is no relevant family history pertinent to the patient complaint. Exam Narrative: GENERAL: This is a well-nourished, well-developed adult, in no apparent distress. They are non ill-appearing, nontoxic appearing. HEAD: normocephalic, atraumatic. EYES: Sclera clear/white. Vision is grossly intact. Conjunctiva normal bilaterally. Extraocular movements intact. EARS: External ears normal, auditory canals clear and without drainage, TMs without erythema or perforation. Hearing grossly intact. NOSE: External nose normal with no obvious nasal discharge, nasal turbinates erythematous, no rhinorrhea. THROAT: Mucous membranes moist, posterior pharynx erythematous without exudate. Tonsils erythematous. No exudate. Uvula is midline. Postnasal drip present. NECK: Neck supple, non-tender without mild cervical lymphadenopathy, masses or thyromegaly. CARDIOVASCULAR: Regular rate and rhythm without murmurs, gallops, or rubs. RESPIRATORY: Clear to auscultation. Breath sounds equal bilaterally. No wheezes, rales, or rhonchi. SKIN: warm, Dry, intact with no suspicious lesions or rash, good texture and turgor. NEURO: awake, alert, and oriented to person, place and time. There were no obvious focal neurologic abnormalities. EXTREMITIES: No joint tenderness, effusion, or edema noted. BACK: Nontender without deformity. Course Course Emergency Course: Portions of this record may have been created with voice recognition software Level of Care: Express Care Visit Vital Signs Vital signs: Vital Signs Temperature 97.2 F L 02/24/25 10:16 Pulse Rate 79 02/24/25 10:16 Respiratory Rate 16 02/24/25 10:16 Blood Pressure 142/80 H 02/24/25 10:16 Pulse Oximetry 100 02/24/25 10:16 Oxygen Delivery Room Air 02/24/25 10:16 Temperature 97.2 F L 02/24/25 10:16 Pulse Rate 79 02/24/25 10:16 Respiratory Rate 16 02/24/25 10:16 Blood Pressure 142/80 H 02/24/25 10:16 Pulse Oximetry 100 02/24/25 10:16 Oxygen Delivery Room Air 02/24/25 10:16 MDM - URI/Sore Throat MDM Narrative Medical decision making narrative: Rapid strep, COVID, flu are negative. A throat culture is pending. Patient likely has viral infection. Discussed physical exam findings. Advised supportive measures and signs/symptoms to go to the ER. Pt is appropriate for outpt treatment and f/u. Differential Diagnosis Differential diagnosis: Likely upper respiratory infection, sinusitis, viral infection and pharyngitis Lab Data Attestation: I reviewed the patient's lab results. Labs: Lab Results 02/24/25 02/24/25 02/24/25 Range/Units 10:26 10:36 10:37 POC Influenza A Ag Negative (Negative) POC Influenza B Ag Negative (Negative) POC SARS CoV-2 Ag Negative (Negative) POC Grp A Strep Screen Negative (Negative) Discharge Plan Discharge Clinical Impression: Upper respiratory infection Patient Disposition: Home Condition: Stable Instructions: Antibiotic Form, Upper Respiratory Infection (ED) Additional Instructions: Your rapid strep swab, COVID, flu was negative today at [facility]. You will be notified in a few days if the culture comes back positive for strep, and appropriate antibiotics will be called in for you at that time. Your symptoms are likely due to a viral illness, which is not treated with antibiotics. Viral symptoms can be present for up to 7-14 days. Take Tylenol or ibuprofen for fever or pain. Rest and stay hydrated. Follow up with your PCP in 3-5 days if symptoms are not improving. Go to the ER immediately if you developed difficulty breathing or swallowing Patient Language: Thai Prescriptions: No Action cholecalciferol (vitamin D3) 50 mcg (2,000 unit) capsule 2,000 unit PO DAILY multivitamin Tablet 1 tablet PO DAILY calcium carbonate-vitamin D3 500 mg(1,250mg) -125 unit tablet 1 tablet PO DAILY ascorbic acid (vitamin C) [Vitamin C] 500 mg Tablet 500 mg PO DAILY metformin 500 mg tablet extended release 24 hr 500 mg PO DAILY Qty: 90 3RF rosuvastatin 5 mg tablet 5 mg PO HS Qty: 90 2RF hydrochlorothiazide 25 mg tablet 25 mg PO BID Qty: 60 1RF Follow-up/Referrals: Rafael Timmons MD [Primary Care Provider, Family Practice] Time of Disposition: 10:43
== END 2025-02-24 10:50 | disposition home or self-care (01) ==
PROVIDERS: PCP Family Medicine
DX: J06.9 Acute upper respiratory infection, unspecified (principal); Z20.822 Contact with and (suspected) exposure to COVID-19; I10 Essential (primary) hypertension; E78.2 Mixed hyperlipidemia
CPT/HCPCS: 87081; 87426; 87804; 87880; 99213; G0463

== ENCOUNTER 2025-06-23 01:18 | Day surgery (SDC) | payer OTHER, SELFPAY ==
[2025-06-06 14:04] VITALS: BMI 28.9
[2025-06-23 06:40] VITALS: BP 157/93; PULSE 93; RESP 18; TEMP 36.1; O2SAT 97; BMI 30.3
[2025-06-23] MEDS: LACTATED RINGERS 1,000 ML 150 ML IV CONT (06:48)
--- NOTE | 2025-06-23 06:54 | WPDANESEPPF ---
Anes - Initial Pre Proc Eval Procedure: Operation Date: 06/23/25 08:00 Proposed Procedures p Screening Colonoscopy - Poncho Hancock MD Date/Time: 06/23/25 06:54 Surgeon: Poncho Hancock MD Pre Op Diagnosis: Personal history of colon polyps, unspecified Patient Data Age: 64 Gender: F Height: 1.5 m Weight: 68.1 kg Last Vital Signs Temp 97 F L 06/23/25 06:40 Pulse 93 06/23/25 06:40 Resp 18 06/23/25 06:40 BP 157/93 H 06/23/25 06:40 Pulse Ox 97 06/23/25 06:40 O2 Del Method Room Air 06/23/25 06:40 Allergies Allergy/AdvReac Type Severity Reaction Status Date / Time azithromycin AdvReac Unknown Gastrointestinal Verified 06/23/25 06:39 Upset pseudoephedrine AdvReac Unknown Tachycardia Verified 06/23/25 06:39 Home Medications ?Medication ?Instructions ?Recorded ?Confirmed ?Type ascorbic acid (vitamin C) 500 mg 500 mg PO DAILY 07/29/19 06/23/25 History tablet (Vitamin C) calcium 500 mg (as 1 tablet PO DAILY 07/29/19 06/23/25 History carbonate)-vitamin D3 3.125 mcg (125 unit) tablet cholecalciferol (vitamin D3) 50 2,000 unit PO DAILY 07/29/19 06/23/25 History mcg (2,000 unit) capsule rosuvastatin 5 mg tablet 5 mg PO HS #90 tabs 12/02/24 06/23/25 Rx hydrochlorothiazide 25 mg tablet 25 mg PO QAM #90 tabs 04/19/25 06/23/25 Rx losartan 50 mg tablet 50 mg PO .pm #90 tabs 04/19/25 06/23/25 Rx metformin 500 mg tablet,extended 500 mg PO BID #180 tabs 04/19/25 06/23/25 Rx release 24 hr valacyclovir 1 gram tablet See Rx Instructions .Route 05/11/25 06/06/25 Rx (Valtrex) .COMPLEX #28 tabs fexofenadine 60 mg tablet (Yanelis 60 mg PO Q12H 06/06/25 06/23/25 History Allergy) Patient hx anesthesia problems: none Family hx anesthesia problems: none Results Review: All pre-operative results and documents have been reviewed as part of the pre-operative evaluation. [facility] Past Medical History Medical History Essential (primary) hypertension Mixed hyperlipidemia Family History Family History Mother Multiple myeloma Father Carcinoma of colon Social History Social History Social History: Smoking status: Never smoker Second hand tobacco smoke exposure: No Alcohol intake: never Substance use: never Substance use type: does not use Current Housing: I Have Housing Concerned About Future Housing: No Difficulty Paying Gas/Electric Bills: No Difficulty Paying for Meds: No Currently Unemployed: No Education: Don't Know Difficulty w/ Childcare or Family Care: No Living arrangements: with family Occupation/Education: occupation Gender identity (if verbalized by the patient): Female Sexual Orientation (if Verbalized by the Patient): Straight or Heterosexual Anes - Eval Final PreProcedure Day of Procedure 06/23/25 06:54 Patient weight: obese Lungs: normal air movement Airway: Mallampati scale class II Neurological: alert and oriented Last oral intake: >/= 8 hours ASA classification: III Emergent: no Anesthetic plan: proceed Anesthesia type and monitoring: general GIVS and standard monitoring Results Review: All pre-operative results and documents have been reviewed as part of the pre-operative evaluation. HTN, hyperlipidemia, DM, pt active w wts/cardio most days at home, no cp or sob. Informed Consent: The patient's anesthetic plan and its attendant risks and benefits were discussed with the patient/family/POA. Questions were solicited and answers provided to the satisfaction of the patient/family/POA.
--- NOTE | 2025-06-23 07:55 | PM.HPGS ---
History of Present Illness History of Present Illness Consent: Risks, benefits, and alternatives have been discussed and questions answered. Patient agrees to proceed with procedure. Chief complaint: Personal history of colon polyps, unspecified Narrative: Thi Chambers is a 64 year old female with last colonoscopy 2020 with polyp, father also had colon cancer Review of Systems Review of Systems: All systems reviewed & are unremarkable except as noted in HPI and below PMFSH Past Medical History Medical History Essential (primary) hypertension Mixed hyperlipidemia Family History Family History Mother Multiple myeloma Father Carcinoma of colon Social History Social History Social History: Smoking status: Never smoker Second hand tobacco smoke exposure: No Alcohol intake: never Substance use: never Substance use type: does not use Current Housing: I Have Housing Concerned About Future Housing: No Difficulty Paying Gas/Electric Bills: No Difficulty Paying for Meds: No Currently Unemployed: No Education: Don't Know Difficulty w/ Childcare or Family Care: No Living arrangements: with family Occupation/Education: occupation Gender identity (if verbalized by the patient): Female Sexual Orientation (if Verbalized by the Patient): Straight or Heterosexual Meds Home Medications and Allergies Home Medications ?Medication ?Instructions ?Recorded ?Confirmed ?Type ascorbic acid (vitamin C) 500 mg 500 mg PO DAILY 07/29/19 06/23/25 History tablet (Vitamin C) calcium 500 mg (as 1 tablet PO DAILY 07/29/19 06/23/25 History carbonate)-vitamin D3 3.125 mcg (125 unit) tablet cholecalciferol (vitamin D3) 50 2,000 unit PO DAILY 07/29/19 06/23/25 History mcg (2,000 unit) capsule rosuvastatin 5 mg tablet 5 mg PO HS #90 tabs 12/02/24 06/23/25 Rx hydrochlorothiazide 25 mg tablet 25 mg PO QAM #90 tabs 04/19/25 06/23/25 Rx losartan 50 mg tablet 50 mg PO .pm #90 tabs 04/19/25 06/23/25 Rx metformin 500 mg tablet,extended 500 mg PO BID #180 tabs 04/19/25 06/23/25 Rx release 24 hr valacyclovir 1 gram tablet See Rx Instructions .Route 05/11/25 06/06/25 Rx (Valtrex) .COMPLEX #28 tabs fexofenadine 60 mg tablet (Yanelis 60 mg PO Q12H 06/06/25 06/23/25 History Allergy) Allergies Allergy/AdvReac Type Severity Reaction Status Date / Time azithromycin AdvReac Unknown Gastrointestinal Verified 06/23/25 06:39 Upset pseudoephedrine AdvReac Unknown Tachycardia Verified 06/23/25 06:39 Vital Signs Vital Signs - 24 hr 06/23/25 06:40 Temperature 97 F L Pulse Rate 93 Respiratory Rate 18 Blood Pressure 157/93 H Pulse Oximetry 97 Oxygen Delivery Room Air Exam Const: General: comfortable and no acute distress HENMT: Face/Nose/Sinus: Normal nares present Eyes: General: appearance normal, both eyes and all related structures Neck: Neck: no JVD Resp: Auscultation: clear to auscultation bilaterally Cardio: Rate: regular rate Rhythm: regular rhythm GI: Inspection: non-distended GI Palp: Yes Soft to palpation Skin: General skin exam: normal color Extrem: General: normal to inspection Psych: Mental Status: mental status grossly normal Assessment and Plan Assessment and plan (1) Family history of colon cancer: Code(s): Z80.0 - Family history of malignant neoplasm of digestive organs Status: Acute Assessment and Plan: colonoscopy (2) History of colon polyps: Code(s): Z86.010 - Personal history of colon polyps Status: Acute
--- NOTE | 2025-06-23 08:11 | S_PTH ---
PATIENT: Thi Chambers LOC: [facility]#:[id number] AGE/SX: 64/F ROOM: RE06/23/[address]: Poncho Hancock MD : 1960 BED: DIS: 06/23/2025 SPEC #: [id number] RECD: 06/23/25 11:01 STATUS: APOLLO REGlory #: [id number] HEIDI: 06/23/25 08:[address]: Poncho Hancock DEPT: [facility] Surgical RECD BY: Yasemin Allan ENTERED: 06/23/25 11:02 SP TYPE: Surgical OTHR DR: Rafael Timmons MD Tissues: A - Colon Polypectomy Procedures: Hematoxylin and Eosin Stain Gross and Microscopic Level 4
[2025-06-23 08:13] VITALS: BP 97/60; PULSE 76; RESP 18; O2SAT 96
[2025-06-23 08:23] VITALS: BP 103/66; PULSE 78; RESP 20; O2SAT 100
[2025-06-23 08:33] VITALS: BP 116/77; PULSE 74; RESP 18; O2SAT 99
== END 2025-06-23 08:46 | disposition home or self-care (01) ==
PROVIDERS: PCP Family Medicine; Referring Provider Family Medicine; Visit Provider Internal Medicine Gastroenterology
PROC: 0DJD8ZZ Inspection of Lower Intestinal Tract, Via Natural or Artificial Opening Endoscopic (ICD-10-PCS; CPT 45378; principal; 2025-06-23 08:00)
DX: Z12.11 Encounter for screening for malignant neoplasm of colon (principal); K63.5 Polyp of colon; K64.8 Other hemorrhoids; Z80.0 Family history of malignant neoplasm of digestive organs; Z79.84 Long term (current) use of oral hypoglycemic drugs; E66.9 Obesity, unspecified; Z68.30 Body mass index [BMI] 30.0-30.9, adult
CPT/HCPCS: 45380; 82948; 88305; J2003; J2704; J7120